=== PATIENT | male | born 1945 | race Caucasian/White ===

== ENCOUNTER 2018-12-19 11:36 | Outpatient (CLI) | payer MEDICARE, OTHER ==
[~2018-12-19] VITALS: Ht 182.9 cm; Wt 84.5 kg
--- NOTE | ~2018-12-19 | HEMODYNAMI ---
PATIENT:YUE WARNER MEDICAL RECORD: [id number] : 49 LOCATION:[facility] ADMISSION DATE: 12/19/18 Generatedon:12/19/201815:31 Patient name: YUE WARNER Patient #: [id number] SSN: DO B: 1945 Date of study: 12/19/2018 Page: Of Hemodynamic Procedure Report Patient Data Patient Demographics Procedure consent was obtained First Name: YUE Gender: Male Last Name: ALANA : 1945 Middle Initial: C Age: 73 year(s) Patient #: [id number] Race: Unknown Additional ID: [id number] Contact details Address: [address] [place] [address] ROAD State: [place] City: [place] Zip code: [address] Past Medical History Allergies: No known allergies Admission Admission Data Admission Date: 12/19/2018 Admission Time: 11:36 Procedure Procedure Types Cath Procedure Diagnostic Procedure PPM/ICD PPM Dual Implant Sedation Charges Moderate Sedation up to 15 minutes Procedure Description Procedure Date Procedure Date: 12/19/2018 Procedure Start Time: 15:08 Procedure Staff Name Function Beka Jonas MD Performing Physician Michael Whitaker MD Assisting physician Judie Urbina RT Monitor Jarad Dolan RN Nurse Thomas Gonzalez RT Scrub Lio Collins MD Ordering physician Procedure Data Cath Procedure Fluoroscopy Diagnostic fluoroscopy Total fluoroscopy Time: 0.8 time: 0.8 min min Diagnostic fluoroscopy Total fluoroscopy dose: 20 dose: 20 mGy mGy Estimated blood loss: 10 ml Procedure Complications No complications Procedure Medications Medication Administration Route Dosage Oxygen etCO2 Nasal cannula 2 l/min 0.9% NaCl I.V. 100 ml/hr Ancef (1Gm/50ml NS) I.V.P.B 1 g Ancef Irrigation Topical 1 g (1gm/500ml NS) Lidocaine 1% added to field 20 Fentanyl I.V. 50 mcg Versed I.V. 1 mg Fentanyl I.V. 50 mcg Versed I.V. 1 mg Hemodynamics Rest Heart Rate: 48 (bpm) Snapshots Pre Cath Intra NCS Post Cath Vital Signs Time Heart Resp SPO2 etCO2 NIBP (mmHg) Rhythm Pain Sedation Rate (ipm) (%) (mmHg) Status Level (bpm) 14:58:06 50 17 99 0 174/88(152) NSR 0 (11) 10(A) , No pain 15:02:24 47 17 100 0 165/84(144) NSR 0 (11) 10(A) , No pain 15:07:41 49 17 100 0 172/82(121) NSR 0 (11) 10(A) , No pain 15:13:11 56 16 100 0 155/71(120) NSR 0 (11) 9(A) , No pain 15:17:29 63 17 100 0 154/83(130) NSR 0 (11) 9(A) , No pain 15:21:51 53 16 100 0 134/68(102) NSR 0 (11) 9(A) , No pain 15:25:59 58 16 100 0 107/90(101) NSR 0 (11) 9(A) , No pain 15:28:55 89 16 100 0 106/78(94) NSR 0 (11) 9(A) , No pain Medications Time Medication Route Dose Verified Delivered Reason Notes Effectiv eness by by 15:01:23 Oxygen etCO2 2 Beka Abraham Per Nasal l/min St Guido Dolan RN physician cannula 15:02:38 0.9% NaCl I.V. 100 Beka Lojay Per ml/hr St Guido Dolan RN physician 15:02:48 Ancef I.V.P.B 1 g Beka Abraham Per (1Gm/50ml St Guido Dolan RN physician NS) 15:02:54 Ancef Topical 1 g Beka Lojay used for Irrigation St Guido Dolan aircraft restorer (1gm/500ml NS) 15:03:03 Lidocaine added 20ml Beka Abraham for local 1% to vial St Guido Dolan RN anesthetic field 15:06:17 Fentanyl I.V. 50 [place]a [place] [facility] [place]ido Dolan RN sedation 15:06:24 Versed I.V. 1 mg Beka Lojay for St Guido Dolan RN sedation 15:11:42 Fentanyl I.V. 50 Beka Abraham [place] [facility] [place]ido Dolan RN sedation 15:11:45 Versed I.V. 1 mg Beka Abraham for LuisGuido Dolan RN sedation Procedure Log Time Note 14:30:41 Jarad Dolan RN sent for patient. Start room use. 14:37:43 Time tracking: Regular hours (M-F 7:00 - 5:00) 14:37:47 Plan of Care:Hemodynamics will remain stable., Cardiac rhythm will remain stable., Comfort level will be maintained., Respiratory function will remain adequate., Patient/ family verbilizes understanding of procedure., Procedure tolerated without complication., Recovers from procedure without complications.. 14:44:49 Patient received from Pre/Post Procedure Room to [facility] 3 Alert and oriented. Tansferred to table in Supine position. 14:44:50 Warm blankets applied, and elgin hugger turned on for patient comfort. 14:44:50 Correct patient and procedure confirmed by team. 14:44:52 Signed procedure consent form obtained from patient. 14:44:53 ECG and BP/O2 sat monitors applied to patient. 14:44:54 Full Disclosure recording started 14:56:08 Vital chart was started 14:56:16 Rhythm: sinus bradycardia 14:56:47 H&P Date Dictated: 12/14/2018 Within 30 days and on chart., H&P Addendum completed by physician on day of procedure. (MUST COMPLETE FOR ALL OUTPATIENTS). 14:56:48 Pre-procedure instructions explained to patient. 14:56:48 Pre-op teaching completed and patient verbalized understanding. 14:56:53 Family in waiting room. 14:56:54 Patient NPO since Midnight. 14:57:08 Patient allergic to No known allergies 14:57:11 Is the patient allergic to Iodine/contrast media? No. 14:58:20 Is patient on blood thinner?No 14:58:22 Patient diabetic? No. 14:58:25 Previous problem with sedation/anesthesia? No ? 14:58:26 Snore? Yes 14:58:26 Sleep apnea? No 14:58:27 Deviated septum? No 14:58:28 Opens mouth fully? Yes 14:58:29 Sticks out tongue? Yes 14:58:31 Airway obstruction? No ? 14:58:33 Dentures? No ? 14:58:38 Patient pain scale 0/10 ?. 14:58:43 IV patent on arrival in left forearm with 0.9% NaCl at [facility]. 14:58:45 Lab results completed and on chart. 14:58:58 Left chest area was prepped with chlora-prep and draped in sterile fashion 14:59:00 Alarms reviewed by R. N. 14:59:00 Sharps counted by scrub and verified by R.N. 14:59:14 Medtronic guest experience representative HAROON DEL REAL present for procedure. 14:59:29 Pre sharps counted by scrub and verified by RN: Sutures: 7; Sponges: 5; Stick needles: 2; Skin needles: 2; Blade: 1; Cautery: 1 14:59:31 Grounding pad site Left thigh. 14:59:32 Grounding pad site free from injury. 15:00:48 2-0 Ticron Multipack ([id number]) opened to sterile field. 15:00:49 3-0 Vicryl Single Pack [id number] opened to sterile field. 15:00:50 5-0 Monocryl PS2 [id number] opened to sterile field. 15:00:50 Cautery Tip Deputy Treasurer opened to sterile field. 15:00:51 Cautery Pushbutton Pencil opened to sterile field. 15:00:51 Mepilex Dressing ([id number]) opened to sterile field. 15:01:23 Oxygen 2 l/min etCO2 Nasal cannula was administered by Jarad Dolan RN; Per physician; 15:02:38 0.9% NaCl 100 ml/hr I.V. was administered by Jarad Dolan RN; Per physician; 15:02:48 Ancef (1Gm/50ml NS) 1 g I.V.P.B was administered by Jarad Dolan RN; Per physician; 15:02:54 Ancef Irrigation (1gm/500ml NS) 1 g Topical was administered by Jarad Dolan RN; used for procedure; 15:03:03 Lidocaine 1% 20ml vial added to field was administered by Jarad Dolan RN; for local anesthetic; 15:03:17 Physician paged 15:04:10 Medtronic Advisa MRI PPM Dual Generator [id number] opened to sterile field. 15:04:11 Medtronic 4074-58 PPM Lead opened to sterile field. 15:04:12 Medtronic 4574-53 PPM Lead opened to sterile field. 15:05:25 Final Timeout: patient, procedure, and site verified with staff and physician. All members of the team are in agreement. 15:05:29 Left chest site verified by team. 15:05:43 Fire Safety Assessment: A--An alcohol-based skin anteseptic being used preoperatively., B--The operative or invasive procedure is being performed above the xiphoid process or in the oropharynx., C--Open oxygen or nitrous oxide is being used. 15::47 Physical assessment completed. ASA score P 2 - A patient with mild systemic disease as per Beka Jonas MD. 15:05:51 Sedation plan: IV Moderate Sedation Medication:Versed, Fentanyl 15:05:58 Baseline sample Acquired. 15:06:17 Fentanyl 50 mcg I.V. was administered by Jarad Dolan RN; for sedation; 15:06:24 Versed 1 mg I.V. was administered by Jarad Dolan RN; for sedation; 15:08:20 Lidocaine 1% was administered to left subclavicular area by Michael Whitaker MD . 15:10:26 Incision made to left subclavicular area. 15:10:28 Generator pocket made/opened. 15:11:42 Fentanyl 50 mcg I.V. was administered by Jarad Dolan RN; for sedation; 15:11:45 Versed 1 mg I.V. was administered by Jarad Dolan RN; for sedation; 15:13:24 Left subclavian vein accessed with 7Fr Peel Away Sheath. 15:13:33 Ventricular lead inserted and advanced. 15:13:36 Left subclavian vein accessed with 7Fr Peel Away Sheath. 15:13:38 Atrial lead inserted and advanced. 15:13:51 DR JONAS SCRUBBED IN 15:15:28 Ventricular lead positioned. 15:16:15 Ventricular lead tested. 15:16:36 Atrial lead positioned. 15:16:47 Atrial lead tested. 15:18:06 Peel-a-way sheath was split and removed. 15:18:07 Peel-a-way sheath was split and removed. 15:18:11 Atrial lead tested. 15:18:25 DR JONAS SCRUBBED OUT 15:18:40 Ventricular lead attachment was completed with 2-0 ticron. 15:18:48 Atrial lead attachment was completed with 2-0 ticron. 15:20:28 PPM Dual was attached to lead(s) and inserted into pocket. 15:20:39 Generator was sutured in place with 2-0 ticron. 15::15 Device pocket was irrigated with Ancef. 15::38 Subcutaneous closure was completed with 3-0 vicryl. 15:22:04 Parameters-- Generator: Mode: DDDR. Lower Rate: 60bpm. Upper Rate: 130bpm. 15:22:33 Parameters--Ventricular P/R Wave: 6.1mV. Current: 0.2mA; Threshold: 0.3V; Impedence: 1181OHMS. 15:22:52 Parameters--Atrial P/R Wave: 4.1mV. Current: 0.5mA; Threshold: 0.3V; Impedence: 673OHMS. 15:25:44 Skin closure was completed with 5-0 monocryl. 15::58 PPM Dual was interrogated. 15::03 Lt Chest incision was dressed with Mepilex dressing. 15:27:02 Procedure ended.(Physican Out) 15::22 Fluoroscopy time 00.80 minutes. 15::27 Fluoroscopy dose: 20 mGy 15:: Flurop Dose total: 20 15::29 Sharps counted by scrub and verified by R.N. 15::43 Post sharps counted by scrub and verified by RN: Sutures: 7; Sponges: 5; Stick needles: 2; Skin needles: 2; Blade: 1; Cautery: 1 15:27:46 Insertion/operative site no bleeding no hematoma. 15:27:59 Post Chest area:stable, clean and dry 15:28:00 Post Procedure Pulses reassessed and unchanged 15::04 Post-procedure physical assessment completed. ASA score P 2 - A patient with mild systemic disease as per Beka Jonas MD. 15:28:06 Post procedure rhythm: paced 15::21 Estimated blood loss: 10 ml 15::22 Post procedure instruction explained to patient.Patient verbalizes understanding. 15:28:22 Patient needs reinforcement of post procedure teaching. 15:28:32 Procedure type changed to Cath procedure, Diagnostic procedure, PPM/ICD, PPM Dual Implant, Sedation Charges, Moderate Sedation up to 15 minutes 15:28:40 Procedure Complication : No complications 15:28:42 See physician's report for complete and final results. 15:29:22 Immobilizer Large opened to sterile field. 15:29:38 Procedure and supply charges have been captured, reviewed, submitted and are correct. 15:29:44 Vital chart was stopped 15:29:45 Report given to PCU. 15:30:34 Patient transfered to PCU with Bed. 15:30:38 End room use (Document Last) Device Usage Item Name Manufacture Quantity Catalog Hospital Part Current Minimal Lot# / Number Charge Number Stock Stock Serial# Code 2-0 Ticron Ethicon 3 [id number] [id number] 5 Multipack ([id number]) 3-0 Vicryl Ethicon 1 [id number] 299559 [id number] 5 Single Pack [id number] 5-0 Monocryl Ethicon 1 [id number] 452596 635492 5 PS2 Y495G Cautery Tip Microtek 1 [id number] 432010 137962 081505 5 [employer]LED Inc. Cautery Microtek 1 [id number] 413474 32290 [id number] 5 Pushbutton [employer] Inc[employer] Pencil Mepilex Cardinal 1 [id number] 852282 974884 910059 5 Dressing Health ([id number]) Medtronic Medtronic 1 [id number] 670435 292234 965607 5 [id number] Advisa MRI EXP PPM Dual 2020-04-11 Generator [id number] Medtronic Medtronic 1 4074-58 886266 795584 518572 5 [id number] 4074-58 PPM EXP Lead 2020-04-12 Medtronic Medtronic 1 4574-53 [id number] 668505 029342 5 [id number] 4574-53 PPM EXP Lead 2020-06-30 Immobilizer Cardinal 1 [id number] [id number] 5 Large Health Signature Audit Tatum Stage Time Signature Unsigned Intra-Procedure 12/19/2018 Judie 3:30:57 PM Counts RT(R) Signatures Monitor : Judie Signature : Counts RT Date : Time : [id number] [place] [address]
[2018-12-19] MEDS ORDERED: COMBIGAN OPHT DR5 ML EACH EYE (11:50)
[2018-12-19] MEDS ORDERED: PRAVACHOL40 MG PO (11:50)
[2018-12-19] MEDS ORDERED: XALATAN 0.0052.5 ML EACH EYE (11:50)
[2018-12-19] MEDS ORDERED: FLOMAX0.4 MG PO (11:51)
[2018-12-19 12:03] VITALS: BP 168/81; BMI 25.8
[2018-12-19 12:18] LABS: HEMATOCRIT 41.5 % (42.0-54.0); HEMOGLOBIN 14.8 g/dL (13.5-17.5); MCH 32.9 pg (26.0-34.0); MCHC 35.7 g/dL (31.0-37.0); MCV 92.2 fL (80.0-100.0); MEAN PLATELET VOLUME 10.6 fL (7.4-10.4); RBC 4.5 10x6/uL (4.20-6.10); RDW 14.1 % (11.5-14.5); WBC 4.2 10x3/uL (4.8-10.8)
[2018-12-19 12:25] LABS: ANION GAP 15.6 mmol/L (8-16); CALCIUM 8.9 mg/dL (8.5-10.1); CARBON DIOXIDE 23.1 mmol/L (21.0-32.0); CREATININE - SERUM 1.1 mg/dL (0.6-1.3); POTASSIUM - SERUM 3.7 mmol/L (3.5-5.1)
[2018-12-19 12:28] LABS: APTT 30.4 SECONDS (22.8-39.4); INR 1.13 (0.85-1.17)
--- NOTE | 2018-12-19 15:59 | NUR ---
TRANSFER FROM HOME CARE MANAGER RN BY BED. VS WNL. LEFT CHEST DRSG CDI. LEFT ARM IN SLING. OREINTED TO ROOM. FAMILY AT BS. CALL LIGHT IN REACH. WILL CONT. PLAN OF CARE.
[2018-12-19 16:31] VITALS: BP 122/80; Ht 182.9 cm; Wt 84.5 kg
--- NOTE | 2018-12-19 19:53 | NUR ---
RESUMING PATIENT CARE. PATIENT IS ALERT AND ORIENTED, RESTING COMFORTABLY IN BED. RESPIRATIONS ARE EVEN AND UNLABORED. NO S/S OF DISTRESS. NO C/O PAIN. DENIES NEEDS. CALL LIGHT WITHIN REACH. WILL CPOC.
[2018-12-19 20:00] VITALS: BP 102/60
[2018-12-20 00:40] VITALS: BP 98/74
[2018-12-20 05:38] VITALS: BP 139/82
[2018-12-20 08:00] VITALS: BP 134/77
--- NOTE | 2018-12-20 09:30 | NUR ---
IV AND TELEMETRY DCD. DC PLANS GIVEN. UNDERSTANDING VOICED. ESCORTED TO CAR BY W/C.
--- NOTE | 2018-12-21 16:09 | OP ---
PATIENT NAME: YUE WARNER MEDICAL RECORD: [id number] :49 LOCATION:D[facility] ADMISSION DATE: SURGEON: JAC PAULINO MD DATE OF OPERATION: 12/19/2018 PREOPERATIVE DIAGNOSES: 1. Symptomatic bradycardia. 2. Hypercholesterolemia. POSTOPERATIVE DIAGNOSES: 1. Symptomatic bradycardia. 2. Hypercholesterolemia. PROCEDURE: 1. Left subclavian vein dual lead pacemaker placement. 2. Fluoroscopic interpretation. SURGEON: Jac Paulino MD CO-SURGEON: Beka Roldan MD REPORT OF PROCEDURE: The patient's left chest was prepped and draped in sterile fashion. A 20 mL of 1% lidocaine with epinephrine was infused into the surrounding tissues. A transverse incision was made on the left superior lateral chest and a subcutaneous pouch was made over the pectoral fascia. A needle was used to cannulate the left subclavian vein and guidewires were advanced times 2. Fluoro was used to note that the wires were in good position in the venous system. A dilator trocar device was placed over the wire and the wire and dilators were removed. The leads were then advanced into position in the venous system. At this point, Dr. Roldan positioned the leads appropriately in the atrium and ventricle. Once the leads were noted to be functioning appropriately, then these were sutured into place with 0 Ti-Cron. The leads were affixed to a pacemaker and the pacemaker was placed into the subcutaneous pouch. The subcutaneous tissues were irrigated out with antibiotic solution and then reapproximated with interrupted 3-0 Vicryl. The skin incision was closed with running subcutaneous 5-0 Monocryl and dressed appropriately. COMPLICATIONS: None. CONDITION: Stable. ANESTHESIA: Local MAC. BLOOD LOSS: Minimal. TRANSINT:[id number] Voice Confirmation ID: [id number] DOCUMENT ID: [id number] OPERATIVE REPORT [id number] YUE WARNER JAC PAULINO MD at 1609 CC: [id number] DICTATION DATE: 12/19/18 1531 SOUND TRUCK OPERATOR: 12/19/18 1544 DEP CLI 12/20/18 [place] [id number]
--- NOTE | 2018-12-26 12:26 | OP ---
PATIENT NAME: YUE ALANIS MEDICAL RECORD: [id number] :49 LOCATION:D.CAT ADMISSION DATE: SURGEON: JAG JONAS MD DATE OF OPERATION: 12/19/2018 PROCEDURE: Lead portion of permanent pacemaker placement. INDICATION: Bradyarrhythmias with AV block. SURGEON: Michael Whitaker MD DESCRIPTION OF PROCEDURE: After left subclavian was cannulated via modified Seldinger technique via Dr. Whitaker, first, under fluoroscopic guidance, I placed the RV lead in the RV apex without difficulty. After adequate thresholds and R waves were obtained, again under fluoroscopic guidance, I placed the right atrial lead in the right atrial appendage without difficulty. After adequate P waves and thresholds were obtained, the leads were attached to the appropriate poles of the generator and the pocket was closed via Dr. Whitaker. IMPRESSION: Successful lead portion of permanent pacemaker placement on Yue Alanis. ESTIMATED BLOOD LOSS: Minimal. COMPLICATIONS: None. DISPOSITION: To the floor, stable. TRANSINT:[id number] Voice Confirmation ID: [id number] DOCUMENT ID: [id number] JAG JONAS MD at 1226 CC: [id number] DICTATION DATE: 12/19/18 1523 LINEN GRADER: 12/19/[address] [facility] CLI 12/20/18 [id number] [place] [address]
== END 2018-12-20 09:31 | disposition home or self-care (01) ==
LOC: D.CATH 11:36 → D.M2 15:35 → D.CATH 12-20 09:31
PROVIDERS: ATTEND Internal Medicine Interventional Cardiology
DX: R00.1 Bradycardia, unspecified (principal); I44.30 Unspecified atrioventricular block; Z01.812 Encounter for preprocedural laboratory examination